=== PATIENT | female | born 1970 | race Caucasian/White ===

== ENCOUNTER → 2017-02-02 | Outpatient (CLI) | payer OTHER ==
[~2017-02-02] MED LIST: ALPRAZOLAM PO; AUGMENTIN PO; AURALGAN EAR DR14 ML OT; AVANDIA PO; CLARITIN D; FLEXERIL PO; FLEXERIL10 MG PO; KETOPROFEN PO; LANTUS100 U/ML INJ; LORTAB 5/500 TA1 TA1 PO; MEDROL PO; NOVOLOG100 U/ML SUBQ; OMNICEF PO; SKELAXIN PO; TAMIFLU75 MG PO; VICODIN PO; ZANAFLEX PO; ZITHROMAX PO
[2017-02-02 14:58] LABS: HEMATOCRIT 40.1 % (35.0-45.0); HEMOGLOBIN 14.3 gm/dL (12.0-16.0); MEAN CELL VOLUME 87.9 FL (83-96); MEAN CORPUSCULAR HEMOGLOBIN 31.4 PG (28-34); MEAN CORPUSCULAR HGB CONC 35.7 g/dL (30-36); MEAN PLATELET VOLUME 8.2 FL (6.5-11.5); RED BLOOD COUNT 4.56 X10e (3.90-5.30); RED CELL DISTRIBUTION WIDTH 13.2 % (11.0-15.5); WHITE BLOOD COUNT 11.5 X10e3 (4.0-10.5)
[2017-02-02 15:06] LABS: BUN/CREATININE RATIO 8.88; CALCIUM SERUM 9.2 mg/dL (8.4-10.2); CREATININE SERUM 0.9 mg/dL (0.6-1.4); GLOM FILT RATE Estimated 76.7 mL/min (>60)
== END | disposition home or self-care (01) ==
LOC: CLAB 14:11
PROVIDERS: Orthopaedic Surgery
DX: Z01.812 Encounter for preprocedural laboratory examination (principal); S83.242A Other tear of medial meniscus, current injury, left knee, initial encounter
CPT/HCPCS: 36415; 80048; 85027